=== PATIENT | female | born 1955 | race Two or more races ===

== ENCOUNTER 2020-06-10 10:56 | Outpatient (AMBR) | payer MEDICARE, MEDICAID, SELFPAY ==
--- NOTE | 2020-06-10 12:49 | PTNOTE_ITS ---
PT OP Initial Eval Patient Information Visit Reasons: knee pain Medical Diagnosis: Right Knee Pain; Right Foot Pain Treatment Dx #1: Right Knee Pain Treatment Dx #2: Right Foot Pain Start of Care: 06/10/20 Date of Onset: Apr 2020 Initial Assessment Subjective Pt is a 65 y/o female c/o right knee and foot pain after she fell on it in Apr 2020. Pt has limitation with prolonged standing, chores, walking, cooking, cleaning, uneven surface, squatting, kneeling, and performing recreational activities. Pt recent xray showed right mild to moderate knee OA. No MRI done thus far. Objective Right Knee AROM: 0 deg to 125 deg with pain Right Knee MMTs Quads: 4-/5 Hs: 4-/5 Right Hip MMTs Glute Med: 3/5 Glute Max: 3/5 Right Ankle AROM: all motions are WFL Right Ankle MMTs: grossly 3+/5 SLS: unable Assessment Pt demonstrate right knee and ankle pain leading to decline function. Pt will attempt physical therapy if pain persist Pt will be refer back to provider. Short Term and Care Home Goals 1) Increase right knee AROM WNL in 6 wks to be able to perform squatting activities 2) Increase right knee MMTs grossly to 4/5 in 6 wks to be able to perform stairs and steps 3) Increase right ankle MMTs grossly to 4-/5 in 6 wks to be able to perform ambulation more than 1 hr 4) Decrease knee pain to 2/10 in 6 wks to be able to perform kneeling activities 5) Indep with HEP Treatment Plan 1) Manual Therapy 2) Therapeutic Activities 3) Therapeutic Exercises 4) Modalities (ice, heat) 5) Balance Training Frequency and Duration 2 x wk for 6 wks Certification Dates: 06/10/20 to 09/10/20 Office Procedures PT Procedures PT Date of Service: 06/10/20 OP PT Eval Mod Complex 30 minutes: Yes
== END 2020-06-14 23:59 | disposition home or self-care (01) ==
PROVIDERS: PCP Physician Assistant; Referring Provider Physician Assistant; Visit Provider Podiatrist
DX: M25.561 Pain in right knee (principal); M79.671 Pain in right foot; R26.2 Difficulty in walking, not elsewhere classified; M25.461 Effusion, right knee
CPT/HCPCS: 97162

== ENCOUNTER 2020-07-02 13:24 | Outpatient (AMBR) | payer MEDICARE, MEDICAID, SELFPAY ==
--- NOTE | 2020-06-16 14:48 | PT.ODAYNRPT ---
PT Outpatient Daily Note Date of Service: 06/16/2020 OP Daily Note Visit Reasons: KNEE PAIN Outpatient Physical Therapy Treatment Date: 06/16/20 Subjective: pt came in with pain and discomfort upon visit. Objective: see flow sheet. Assessment: pt c/o knee and R foot pain. the bigger step she took the more pain she had. she kept pointing to the R quad muscles of pain. she also mentioned HS muscle pain for BLE. she removed her slip on shoes her exercises. she was limited with FWD lunges due to increase in pain. pt ambulates with antalgic gait pattern. pt refused ice or heat post ther ex due to her car ride waiting for her outside. Plan: continue POC per PT. Length of Time (minutes) of Treatment: 30 Minutes GROUP CONTROLLER Service Modifier Method I: Divide the number of min of care provided by the GROUP CONTROLLER/MANUELA by the total min of care provided then multiply by 100. If greater than 11 percent modifier is required. Method II: Divide the total time of care provided to patient by 10 (round to the nearest whole number) and add 1 min. to set the minimum time requirement. If treatment total was 60 min., then 10% of 6 min Did GROUP CONTROLLER provide more than 10% of the care?: Yes PT CQ modifier applied: CQ Modifier applied Office Procedures PT Procedures PT Date of Service: 06/16/20 Therapeutic Exercise 30 minutes: Yes
--- NOTE | 2020-06-19 13:52 | PT.ODAYNRPT ---
PT Outpatient Daily Note Date of Service: 06/19/2020 OP Daily Note Visit Reasons: KNEE PAIN Outpatient Physical Therapy Treatment Date: 06/19/20 Subjective: pt came in with c/o posterior R knee pain. she also mentioned having a tear on her plantar R foot. Objective: see flow sheet. Assessment: pt is sensitive with certain exercises. she did try the stepper stretch in which she c/o pain of the R ankle so she stepped off. at times pt removes her shoes for exercises. advised her to leave them on for her walking exercises which are in the PB but to avoid any slips/falls she is to keep them on. added cones in her exercises as she is to step over them with alternating LEs. she c/o being fatigued. she sat and rested. she refuses ice pack. Plan: continue POC per PT. Length of Time (minutes) of Treatment: 30 Minutes ADMITTING OFFICE ESCORT Service Modifier Method I: Divide the number of min of care provided by the ADMITTING OFFICE ESCORT/MANUELA by the total min of care provided then multiply by 100. If greater than 11 percent modifier is required. Method II: Divide the total time of care provided to patient by 10 (round to the nearest whole number) and add 1 min. to set the minimum time requirement. If treatment total was 60 min., then 10% of 6 min Did ADMITTING OFFICE ESCORT provide more than 10% of the care?: Yes PT CQ modifier applied: CQ Modifier applied Office Procedures PT Procedures PT Date of Service: 06/16/20 Therapeutic Exercise 30 minutes: Yes PT Procedures PT Date of Service: 06/19/20 Therapeutic Exercise 30 minutes: Yes
--- NOTE | 2020-06-27 14:11 | PTNOTE_ITS ---
PT Outpatient Daily Note Date of Service: 06/27/2020 OP Daily Note Visit Reasons: KNEE PAIN Outpatient Physical Therapy Treatment Date: 06/27/20 Subjective: pt states her mile back and bottom of her feet hurt upon visit. Objective: see flow sheet. Assessment: during her side steps she does have RTB but she is not able to stretch and push against the resistance due to pain. she is taking small steps. she refused to take bigger steps. her mobility during FWD lunges is limited due to c/o back pain. pt pt c/o pain all throughout treatment. advised pt she can stop and rest as needed but she didn't and completed all reps. pt refused ice or heat on her R knee post ther ex. Plan: continue POC per PT. Length of Time (minutes) of Treatment: 30 Minutes NUMERICAL CONTROL MACHINE MACHINIST Service Modifier Method I: Divide the number of min of care provided by the NUMERICAL CONTROL MACHINE MACHINIST/MANUELA by the total min of care provided then multiply by 100. If greater than 11 percent modifier is required. Method II: Divide the total time of care provided to patient by 10 (round to the nearest whole number) and add 1 min. to set the minimum time requirement. If treatment total was 60 min., then 10% of 6 min Did NUMERICAL CONTROL MACHINE MACHINIST provide more than 10% of the care?: Yes PT CQ modifier applied: CQ Modifier applied Office Procedures PT Procedures PT Date of Service: 06/16/20 Therapeutic Exercise 30 minutes: Yes PT Procedures PT Date of Service: 06/27/20 Therapeutic Exercise 30 minutes: Yes PT Procedures PT Date of Service: 06/19/20 Therapeutic Exercise 30 minutes: Yes
--- NOTE | 2020-07-02 14:27 | PT.ODAYNRPT ---
PT Outpatient Daily Note Date of Service: 07/02/20 OP Daily Note Visit Reasons: KNEE PAIN Outpatient Physical Therapy Treatment Date: 07/02/20 Subjective: Pt's right knee and foot is a little better. Objective: Please see flow chart for list of ther ex performed Assessment: tolerate exercises with minimal pain Plan: Continue with PT Length of Time (minutes) of Treatment: 30 Minutes Office Procedures PT Procedures PT Date of Service: 06/16/20 Therapeutic Exercise 30 minutes: Yes PT Procedures PT Date of Service: 06/27/20 Therapeutic Exercise 30 minutes: Yes PT Procedures PT Date of Service: 07/02/20 Therapeutic Exercise 30 minutes: Yes PT Procedures PT Date of Service: 06/19/20 Therapeutic Exercise 30 minutes: Yes
== END 2020-07-14 23:59 | disposition home or self-care (01) ==
PROVIDERS: PCP Physician Assistant; Referring Provider Physician Assistant; Visit Provider Physician Assistant
DX: M25.561 Pain in right knee (principal); M79.671 Pain in right foot; R26.2 Difficulty in walking, not elsewhere classified
CPT/HCPCS: 97110

== ENCOUNTER 2021-08-12 13:55 | Outpatient (AMBR) | payer MEDICARE, MEDICAID, SELFPAY ==
--- NOTE | 2021-08-12 14:09 | PTNOTE_ITS ---
PT OP Initial Eval Patient Information Visit Reasons: bilateral trigger thumb Medical Diagnosis: M65.311 Treatment Dx #1: B trigger thumbs Start of Care: 08/12/21 Date of Onset: March 2021 Initial Assessment Subjective Pt is 66 yr old female who lifted a heavy box and she lost control of it and it bent back her thumbs far enough to feel a pop. She reports intense pain around the base of the thumb and that they pop when she moves them. She was off work for 3 months after the injury since she couldn't move her hands. Increased pain with typing, lifting, gripping and pulling objects. B wrists also hurt and feel like electric shocks in there. PLOF: pt had full use of thumbs and hands with gripping and lifting objects not limited by pain. PMH: HTN, allergies Imaging: with [facility] Pt goal: to get rid of the pain in order to move the thumbs better with work duties. 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 Pt requires skilled therapy in order to desensitize the thumb area and improve classified advertising clerk strength and has fair rehab potential. 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 Ind with HEP 2. Improved classified advertising clerk strength to at least 15 lbs B in order to lift and classified advertising clerk objects better 3. Decreased TTP from high to moderate of thumb region Treatment Plan 90 day plan of care in order to complete visits 1. Manual therapy 2. Therex 3. Modalities as indicated, moist heat pack, ice, electrical stimulation Frequency and Duration 2x a week for 6 weeks Certification Dates: 08/12/21 to 11/08/21 Office Procedures PT Treatments PT Date of Service: 08/12/21 OP PT Eval Mod Complex 30 minutes: Yes
== END 2021-08-14 23:59 | disposition home or self-care (01) ==
PROVIDERS: PCP Orthopaedic Surgery; Referring Provider Orthopaedic Surgery; Visit Provider Orthopaedic Surgery
DX: M65.311 Trigger thumb, right thumb (principal); M79.642 Pain in left hand; M79.641 Pain in right hand; M25.532 Pain in left wrist; M25.531 Pain in right wrist; I10 Essential (primary) hypertension
CPT/HCPCS: 97162

== ENCOUNTER → 2024-07-24 | Outpatient (CLI) | payer OTHER, MEDICAID, SELFPAY ==
[2024-07-24 13:21] LABS: Basophils # (Auto) 0.1 Thou/mm3 (0.0-0.2); Basophils % (Auto) 1 % (0-2.5); Eosinophils # (Auto) 0.2 Thou/mm3 (0.0-0.5); Eosinophils % (Auto) 2 % (0-10); Hematocrit 41.9 % (36.0-46.0); Hemoglobin 14.1 g/dL (12.0-16.0); Immature Granulocytes % (Auto) 0 % (0-0); Immature Granulocytes Auto 0.03 Thou/mm3 (0.00-0.00); Lymphocytes # (Auto) 1.6 Thou/mm3 (1.0-4.8); Lymphocytes % (Auto) 20 % (10-50); Mean Corpuscular HGB Conc 33.7 g/dl (31.0-37.0); Mean Corpuscular Hemoglobin 30.5 pg (25.0-35.0); Mean Corpuscular Volume 91 fL (80-100); Monocytes # (Auto) 0.6 Thou/mm3 (0.0-0.8); Monocytes % (Auto) 7 % (0-12); Neutrophils # (Auto) 5.6 Thou/mm3 (1.8-7.7); Neutrophils % (Auto) 70 % (37-80); Nucleated Red Blood Cell % 0 /100 WBC (0); Platelet Count 242 Thou/mm3 (140-440); RDW Standard Deviation 39.3 fL (36.4-46.3); Red Blood Count 4.62 Miln/mm3 (4.00-5.20); White Blood Count 7.9 Thou/mm3 (3.6-11.0)
[2024-07-24 13:52] LABS: Alanine Aminotransferase 29 U/L (10-49); Albumin, Serum 4.2 gm/dL (3.4-4.8); Albumin/Globulin Ratio 2.1 (1.2-2.2); Alkaline Phosphatase 64 U/L (46-116); Anion Gap 5 (7-16); Aspartate Amino Transferase 23 U/L (0-34); BUN/Creatinine Ratio 21 Ratio (12-20); Bilirubin,Total 0.5 mg/dL (0.3-1.2); Blood Urea Nitrogen 15 mg/dL (9-23); Calcium 9.5 mg/dL (8.3-10.6); Calcium (Corrected) 9.5 mg/dL (8.5-10.1); Carbon Dioxide 32.6 mMol/L (20.0-31.0); Chloride 104 mMol/L (98-107); Creatinine (Component) 0.7 mg/dL (0.6-1.3); Glucose 106 mg/dL (74-106); Osmolality,Calculated 283 (275-295); Potassium 3.9 mMol/L (3.4-5.1); Sodium 142 mMol/L (136-145); Total Protein 6.2 gm/dL (5.7-8.2); eGFR > 60 See Note
== END | disposition home or self-care (01) ==
LOC: COPL 12:53
PROVIDERS: PCP Family Medicine; Referring Provider Internal Medicine Hematology & Oncology; Visit Provider Internal Medicine Hematology & Oncology
DX: C50.412 Malignant neoplasm of upper-outer quadrant of left female breast (principal)
CPT/HCPCS: 36415; 80053; 85025

== ENCOUNTER → 2024-08-21 | Outpatient (BNVA) | payer OTHER, MEDICAID, SELFPAY | END | disposition home or self-care (01) | PROVIDERS: PCP Nurse Anesthetist, Certified Registered; Referring Provider Nurse Anesthetist, Certified Registered; Visit Provider Urology | DX: R10.2 Pelvic and perineal pain (principal); R31.9 Hematuria, unspecified; N28.1 Cyst of kidney, acquired; Z87.440 Personal history of urinary (tract) infections; C50.919 Malignant neoplasm of unspecified site of unspecified female breast; Z92.3 Personal history of irradiation; I10 Essential (primary) hypertension; E78.00 Pure hypercholesterolemia, unspecified; K21.9 Gastro-esophageal reflux disease without esophagitis | CPT/HCPCS: 81003; 99212; G0463 ==

== ENCOUNTER → 2024-08-27 | Outpatient (CLI) | payer OTHER, MEDICAID, SELFPAY ==
--- NOTE | 2024-08-27 15:30 | XR_ITS ---
Examination: CT chest, without intravenous contrast. Sagittal and coronal 2-D reconstructions. 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 Bone and lung density settings are obtained. Sagittal and coronal 2-D reconstructions have been obtained. Low dose protocols were performed. One or more of the following dose reduction techniques were used; automated exposure control, adjustment of the mA and/or KV according to patient size, use of iterative reconstruction technique. Findings: No thoracic aortic aneurysm dilatation or dissection Pulmonary artery segments are not enlarged Mild to moderate calcification left anterior descending coronary artery Mild enlargement cardiac contour No paratracheal tracheobronchial or bronchopulmonary adenopathy Stable 11 mm nodule lateral left breast No axillary lymphadenopathy New 3 mm pulmonary nodule in the right perihilar region image 159 Remaining pulmonary nodules are stable No pneumonia or pulmonary edema Diffuse fatty infiltration throughout the visualized liver Spleen is not enlarged No pancreatic mass Kidneys partially visualized no hydronephrosis Moderate osteopenia IMPRESSION: New 3 mm pulmonary nodule in the right lung, with this study as baseline, suggest continued 6 month follow-up CT chest without contrast
== END | disposition home or self-care (01) ==
PROVIDERS: PCP Internal Medicine; Referring Provider Internal Medicine Hematology & Oncology; Visit Provider Internal Medicine Hematology & Oncology
DX: R91.1 Solitary pulmonary nodule (principal); C50.412 Malignant neoplasm of upper-outer quadrant of left female breast
CPT/HCPCS: 71250

== ENCOUNTER → 2024-08-30 | Outpatient (CLI) | payer OTHER, MEDICAID, SELFPAY ==
--- NOTE | 2024-08-30 14:55 | XR_ITS ---
EXAMINATION: Cervical spine, 5 views Technique: Cervical spine AP, AP odontoid, lateral, bilateral obliques, 5 views Exam date and time: August 30, 2024 1507 hours INDICATIONS: Injury to the shoulder today with right-sided neck pain FINDINGS: Straightening normal cervical lordosis no cervical fracture Advanced degenerative disc disease C6-C7 with moderate bilateral neural foraminal stenosis C5-C6, C6-C7 Intact odontoid No cervical fracture IMPRESSION: Advanced degenerative disc disease C6-C7
--- NOTE | 2024-08-30 14:55 | XR_ITS ---
Examination: Clavicle 2 views, right Technique: Clavicle AP, angled up AP, 2 views Exam date and time: August 30, 2024 1807 hours INDICATIONS: Injury to the shoulder today, shoulder pain. FINDINGS: No acute clavicle fracture No significant separation IMPRESSION: No acute clavicle fracture
--- NOTE | 2024-08-30 14:55 | XR_ITS ---
Examination: Shoulder,right, 3 views Technique: Shoulder AP internal rotation, AP external rotation, Y view shoulder, 3 views Exam date and time :August 30, 2024 1507 hours INDICATIONS: Shoulder, shoulder pain. FINDINGS: Moderate osteopenia No shoulder fracture or dislocation No AC joint separation IMPRESSION: No shoulder fracture or dislocation
== END | disposition home or self-care (01) ==
LOC: COPL 14:33 → CDIM 09-24 11:50
PROVIDERS: PCP Internal Medicine; Referring Provider Obstetrics & Gynecology; Visit Provider Obstetrics & Gynecology
DX: M50.323 Other cervical disc degeneration at C6-C7 level (principal); S49.91XA Unspecified injury of right shoulder and upper arm, initial encounter; X58.XXXA Exposure to other specified factors, initial encounter
CPT/HCPCS: 72050; 73000; 73030

== ENCOUNTER → 2024-09-14 | Outpatient (CLI) | payer OTHER, MEDICAID, SELFPAY ==
--- NOTE | 2024-09-14 15:00 | XR_ITS ---
Examination: Breast ultrasound, unilateral, right complete Date and time of exam: September 14, 2024 1527 hours INDICATIONS: Right breast sonogram December 15, 2023 9:00 architectural distortion 16 x 10 mm right breast tenderness post lumpectomy, personal history left breast cancer Technique: Real-time flores scale ultrasonographic imaging performed right breast including all 4 quadrants as well as nipple retroareolar and axillary region. Findings: No cystic or solid mass at this time IMPRESSION: BI-RADS Category 1: Negative study
--- NOTE | 2024-09-14 15:30 | XR_ITS ---
Examination: Retroperitoneal ultrasound, complete Technique: Multiple high resolution grayscale images of the retroperitoneum obtained, including kidneys and bladder. Exam date and time:September 14, 2024 1415 hours INDICATIONS: 18 mm cyst left kidney on CT examination November 24, 2023 FINDINGS: Right kidney 10.9 x 3.8 x 4.1 cm cortex 1.6 cm Left kidney 10.1 x 4.6 x 4.4 cm renal cortex 2.0 cm Lower pole left renal cyst 24 mm Moderate bilateral renal parenchymal scar formation No hydronephrosis No bladder mass Bladder prevoid volume 70 cc Incidental note large uterine area of probable fibroid degeneration 6.8 cm IMPRESSION: Lower pole left renal cyst 24 x 23 x 23 mm
== END | disposition home or self-care (01) ==
PROVIDERS: PCP Urology; Referring Provider Urology; Visit Provider Urology
DX: N28.1 Cyst of kidney, acquired (principal); R92.8 Other abnormal and inconclusive findings on diagnostic imaging of breast; Z85.3 Personal history of malignant neoplasm of breast
CPT/HCPCS: 76641; 76770

== ENCOUNTER → 2024-12-07 | Outpatient (CLI) | payer OTHER, MEDICAID, SELFPAY ==
[2024-12-08 08:54] LABS: BVAG Candida Negative (Negative); Bacterial Vaginosis Markers Negative (Negative); Candida glabrata Negative (Negative); Candida krusei PCR Negative (Negative); Trichomonas Negative (Negative)
== END | disposition home or self-care (01) ==
LOC: SLDO 15:34
PROVIDERS: Referring Provider Specialist; Visit Provider Specialist
DX: A59.01 Trichomonal vulvovaginitis (principal); B37.89 Other sites of candidiasis; N76.0 Acute vaginitis
CPT/HCPCS: 81514

== ENCOUNTER → 2024-12-11 | Outpatient (CLI) | payer OTHER, MEDICAID, SELFPAY ==
[2024-12-11 14:27] LABS: Basophils # (Auto) 0.1 Thou/mm3 (0.0-0.2); Basophils % (Auto) 1 % (0-2.5); Eosinophils # (Auto) 0.2 Thou/mm3 (0.0-0.5); Eosinophils % (Auto) 3 % (0-10); Hematocrit 38.8 % (36.0-46.0); Hemoglobin 13.4 g/dL (12.0-16.0); Immature Granulocytes % (Auto) 0 % (0-0); Immature Granulocytes Auto 0.02 Thou/mm3 (0.00-0.00); Lymphocytes # (Auto) 1.9 Thou/mm3 (1.0-4.8); Lymphocytes % (Auto) 24 % (10-50); Mean Corpuscular HGB Conc 34.5 g/dl (31.0-37.0); Mean Corpuscular Hemoglobin 31.1 pg (25.0-35.0); Mean Corpuscular Volume 90 fL (80-100); Monocytes # (Auto) 0.6 Thou/mm3 (0.0-0.8); Monocytes % (Auto) 7 % (0-12); Neutrophils % (Auto) 65 % (37-80); Nucleated Red Blood Cell % 0 /100 WBC (0); Platelet Count 243 Thou/mm3 (140-440); RDW Standard Deviation 40.2 fL (36.4-46.3); Red Blood Count 4.31 Miln/mm3 (4.00-5.20); White Blood Count 7.7 Thou/mm3 (3.6-11.0)
[2024-12-11 14:44] LABS: Alanine Aminotransferase 14 U/L (10-49); Albumin, Serum 3.8 gm/dL (3.4-4.8); Albumin/Globulin Ratio 1.7 (1.2-2.2); Alkaline Phosphatase 86 U/L (46-116); Anion Gap 5 (7-16); Aspartate Amino Transferase 19 U/L (0-34); BUN/Creatinine Ratio 16 Ratio (12-20); Bilirubin,Total 0.4 mg/dL (0.3-1.2); Blood Urea Nitrogen 13 mg/dL (9-23); Calcium 8.9 mg/dL (8.3-10.6); Calcium (Corrected) 9.1 mg/dL (8.5-10.1); Carbon Dioxide 31.7 mMol/L (20.0-31.0); Chloride 106 mMol/L (98-107); Creatinine (Component) 0.8 mg/dL (0.6-1.3); Globulin 2.2 gm/dL (2.3-3.5); Glucose 118 mg/dL (74-106); Osmolality,Calculated 286 (275-295); Potassium 3.9 mMol/L (3.4-5.1); Sodium 143 mMol/L (136-145); eGFR > 60 See Note
== END | disposition home or self-care (01) ==
LOC: SCTO 13:41
PROVIDERS: PCP Family Medicine; Referring Provider Internal Medicine Hematology & Oncology; Visit Provider Internal Medicine Hematology & Oncology
DX: C50.412 Malignant neoplasm of upper-outer quadrant of left female breast (principal)
CPT/HCPCS: 36415; 80053; 85025

== ENCOUNTER 2024-12-12 14:02 | Outpatient (RCR) | payer OTHER, MEDICAID, SELFPAY ==
--- NOTE | 2024-12-19 12:33 | CTCFLWUP_ITS ---
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 She recently underwent cardiac testing (heart ultrasound and stress test) with pending results. Currently on tamoxifen 20mg at bedtime after d iscontinuing letrozole due to side effects. Other medications include metoprolol, aspirin, and Prolia (next dose December 30). Examination revealed left breast tenderness and thickening. Plan includes continuing current medications, ordering bilateral mammogram, breast ultrasound, Netera DNA test, and ralox ifene. Chief Complaint Chest tightness, breast tenderness and thickening History of Present Illness Jordi Villafana, a patient with a history of breast cancer, presents for follow-up with multiple concerns. Her chief complaints include chest tightness and breast tenderness. The patient reports experiencing chest tightness, though the onset and duration are not specified. She had an ultrasound of the heart yesterday and a stress test last Tuesday. She is scheduled to see a career development associate on Tuesday for the results of these tests. Keyanna also mentions breast tenderness and thickening. She has been instructed to massage her breast to address these symptoms. 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 Surgery was completed by 2019. Currently, Keyanna is on hormone-blocking therapy with tamoxifen 20 mg, which she reports makes her tired. She was previously on letrozole but discontinued it due to side effects, including feeling sick and increased white blood cell count. She now takes tamoxifen at bedtime to help with sleep. Other medications include metoprolol, aspirin, and Prolia every six months. The patient's blood pressure and blood sugar have been high recently, though today's blood sugar reading was 83. She takes calcium with magnesium supplements and is considering getting a prescription for them. Vital Signs - Blood Pressure: Not reported - Blood Sugar: 83 (units not specified) Physical Examination Breast: Left breast tender and thickened on palpation. Laboratory, Imaging, and Diagnostic Test Results - Date: 12/11/2024 - Blood glucose: 83 mg/dL - Ultrasound of the heart (12/11/2024): Results pending - Stress test (12/05/2024): Results pending - Ultrasound of the right breast (August 2024): Negative - CT scan (date not specified): Small 3mm nodule, noted as insignificant - Mammogram (12/15/2023): Results not mentioned - Previous results: - White blood cell count: Elevated (date not specified, while on letrozole) Medical History - Hypertension (high blood pressure) - Diabetes mellitus (high blood sugar) - ER-positive, IA-negative ductal carcinoma in situ (stage 0) breast cancer diagnosed in 2022 - Stage 2 breast cancer in the left breast diagnosed in 2018 Surgical History - Left breast surgery for stage 2 breast cancer, completed by 2019 Medications and Supplements - Tamoxifen 20 mg by mouth at bedtime - For hormone-blocking therapy - Causes tiredness - Helps with sleep - Metoprolol - Aspirin - Prolia - Administered every six months - Letrozole - Discontinued - Caused sickness and increased white blood cells Social History - Insurance: Patient has [employer] Medicare Immunizations - Prolia: Patient receives doses every six months, with next dose scheduled for December 30 Review of Systems General: Positive for fatigue. Cardiovascular: Positive for chest tightness. Musculoskeletal: Positive for breast tenderness. ONCOLOGY HISTORY: DIAGNOSIS: ER positive, IA negative ductal carcinoma in situ of right breast (01/11/2023). S/p right breast lumpectomy (02/18/2023) S/p adjuvant radiation therapy (05/18/2023 - 06/14/2023) [facility] hereditary cancer test negative (03/10/2023) Stage IIa (pT1c, psN1a), ER positive, IA positive, HER-2/kami negative, intermediate grade invasive ductal carcinoma of the left breast. Status post partial mastectomy and sentinel lymph node biopsy (07/27/2019). Status post radiation therapy completed on 12/07/2019. Low Oncotype DX recurrence score (16) Was on letrozole (12/10/2019?02/18/2023), Prolia and Citracal. Ductal Carcinoma in situ of right breast s/p lumpectomy (02/18/2023) letrozole discontinued. Ms. Walter is started on tamoxifen. REASON FOR TODAY?S VISIT: This is office follow-up visit. Ms. Walter is here at [facility]. She is clinically doing well. Denies any new complaints. Denies any cough, chest pain, abdominal pain or leg cramps. Since last visit she had CT scan of the chest done without contrast which showed small multiple pulmonary nodules as documented below. Repeat CT scan is recommended to be done in 6 months. Ms. 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 07/28/2018: Bilateral screening mammogram showed a suspicious focus of architectural distortion in the upper outer left breast at 1:30 position mid to anterior depth. 08/18/2018: Left breast diagnostic mammogram did not show any definite architectural distortion in the left breast. 04/27/2019: Left breast diagnostic mammogram showed architectural distortion at 1:30 position in the left breast mid to anterior depth. 06/07/2019: Stereotactic guided vacuum-assisted left breast biopsy with clip placement was performed. 07/27/2019: Patient had left breast partial mastectomy and sentinel lymph node biopsy. 09/21/2019: Oncotype DX 10/29/2019?12/07/2019: Patient received 5600 cGy radiation therapy to the left breast. 12/10/2019: Patient is started on Femara and Citracal 01/03/2020: DEXA scan? 03/06/2020: Patient received first dose of Prolia 60 mg subcu. 10/20/2020: Patient had bilateral screening mammogram which showed BI-RADS Category 2: Benign findings. 10/02/2020: AST 26, ALT 34. 01/28/2021: AST 30, ALT 52. 04/01/2021 AST 53, ALT 81 09/08/2021: AST 53, ALT 73. 11/02/2021: AST 65, ALT 85. 12/02/2022: Right breast diagnostic mammogram? 01/11/2023: tereotactic core biopsy of right breast calcifications? 02/18/2023: 03/24/2023: CT-guided biopsy of the left carotid triangle lymph node? 04/07/2023: Letrozole discontinued. Patient is started on tamoxifen 20 mg p.o. Daily. 05/18/2023 - 06/14/2023: Ms. Walter received adjuvant radiation therapy to the right breast. 09/16/2023: Left breast ultrasound? 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 Aspirin Child - 81 mg Daily 2. Navjot-600 With Vitamin D - 600 mg Daily 3. cetirizine - 10 mg Capsule Daily 4. Claritin - 10 mg Daily 5. ferrous sulfate - 325 mg Daily 6. Folite - 2-211-29-100 ae-qj-wsp-mg 1 tab Daily 7. lovastatin - 40 mg 1 tab Daily 8. magnesium - 200 mg 1 tab Daily 9. metoprolol succinate - 25 mg 1 tab Daily 10. tamoxifen - 20 mg 1 tab Daily 11. TylenoL - 500 mg 1 tab As needed Medications Last Reconciled by Merlene Ruiz MA on 12/12/2024 ALLERGIES: codeine sulfate; Iodine and Iodide Containing Products; IV CONTRAST REVIEW OF SYSTEMS: A complete 14-point review of systems was performed and is negative except as noted in interval history. PHYSICAL EXAMINATION: VITAL SIGNS: Temperature?98, B/P?110/75, Oxygen?Saturation?95% PAIN: 0 - No pain ECOG Performance Status: 0 - Asymptomatic and fully active GENERAL APPEARANCE: Appears well, in no apparent distress, appropriately interactive. HEENT: Normocephalic, no temporal wasting, normal conjunctiva, no scleral icterus, normal hearing, lips without lesions, neck normal range of motion. CARDIOVASCULAR: Not assessed. PULMONARY: Normal respiratory effort, no respiratory distress or use of accessory muscles, speaking in full sentences, no tachypnea. EXTREMITIES: No pedal edema or cyanosis. SKIN: Normal skin appearance. NEUROLOGIC: Alert and oriented x4. PSHYCHIATRIC: Appropriate affect, mood normal, behavior normal, intact thought and speech. LABORATORY DATA: I have personally reviewed and interpreted each of the patient?s relevant lab tests, abnormal findings are below: Date 07/24/24 12/11/24 ??WHITE?BLOOD?COUNT?(Thou/mm3) 7.9 7.7 ??RED?BLOOD?COUNT?(Miln/mm3) 4.62 4.31 ??HEMOGLOBIN?(gm/dl) 14.1 13.4 ??HEMATOCRIT?(%) 41.9 38.8 ??PLATELET?COUNT?(Thou/mm3) 242 243 ??NEUTROPHILS?%,?AUTO?(%) 70 65 ??LYMPH?%,?AUTO?(%) 20 24 ??NEUTROPHILS,?AUTO?(Thou/mm3) 5.6 5.0 ??GLUCOSE,RANDOM?(mg/dL) 106 118?H ??BLOOD?UREA?NITROGEN?(mg/dL) 15 13 ??CREATININE?(mg/dL) 0.70 0.80 ??SODIUM?(mmol/L) 142 143 ??POTASSIUM?(mmol/L) 3.9 3.9 ??CHLORIDE?(mmol/L) 104 106 ??CrCl?(CandG)?(ml/min) 80.97 70.85 ??AST/SGOT?(Unit/L) 23 19 ??ALT/SGPT?(Unit/L) 29 14 ??ALKALINE?PHOSPHATASE?(Unit/L) 64 86 ??BILIRUBIN,?TOTAL?(mg/dL) 0.5 0.4 ??PROTEIN?TOTAL?(gm/dl) 6.2 6.0 ??ALBUMIN,?SERUM?(gm/dl) 4.2 3.8 ??GLOBULIN?(gm/dl) 2.0?L 2.2?L ??ALBUMIN/GLOBULIN?RATIO 2.1 1.7 ??CALCIUM,?SERUM?(mg/dL) 9.5 8.9 ??CALCIUM?SERUM?(CORRECTED)?(mg/dL) 9.5 9.1 ASSESSMENT/PLAN: 1. Stage IIa (pT1c, psN1a), ER positive, IA positive, HER-2/kami negative, intermediate grade invasive ductal carcinoma of the left breast. Low Oncotype DX score of 16Recently identified multiple small pulmonary nodules as documented above. Ms. Walter denies any cough, chest pain, shortness of breath. Denies any fevers or night sweats. S/p radiation therapy to the right breast completed on 06/14/2023. Currently she is on tamoxifen and tolerating it very well. Tamoxifen was started on 04/07/2023. Patient developed ductal carcinoma in situ ER positive, IA positive of the right breast while on letrozole. Letrozole discontinued. S/p right breasT lumpectomy. She is also on Prolia and Citracal for osteopenia Status post partial mastectomy and sentinel lymph node biopsy (07/27/2019). Status post radiation therapy completed on 12/07/2019. I requested a repeat CT scan of the chest without contrast to be done on September 05, 2024. Continue tamoxifen 20 mg p.o. daily. Continue Prolia 60 mg subcu every 6 months. Continue calcium/vitamin D tablets. Will see her back in clinic in last week of August 2024 for follow-up. Ayala Yony Coleman, female patient with history of right breast cancer, presented for follow-up after non-compliance with chemotherapy treatment. Right breast cancer Assessment: Patient has a history of right breast cancer, initially diagnosed in August. A CT scan in October showed good results. Physical examination reveals a right breast mass measuring 4 x 3 cm, which is freely mobile. The breast size is estimated to be cup size A or B. The patient has been non-compliant with chemotherapy, having only completed two treatments. The cancer has not spread to other body parts, but the tumor remains present in the right breast. The patient's non-compliance with treatment puts her at high risk for cancer progression and potential complications, including the tumor breaking through the skin, causing bleeding and malodor. Plan: - Refer to Dr. Amezcua, breast surgeon, for evaluation and possible mastectomy - Recommend resumption of chemotherapy regimen - Informed patient that one drug has been removed from the original regimen - Discussed risks of non-compliance, including cancer progression and potential complications - Order MARYCRUZ blood test for early cancer detection - To be performed every 3 months - Can be done at patient's home - Schedule follow-up appointment to discuss treatment plan and surgical options - Advised patient to come in for symptom management (e.g., nausea) if needed during treatment ORDERS: Order # Description [id number] Basic Metabolic Panel [id number] Basic Metabolic Panel [id number] Basic Metabolic Panel BILLING AND COMPLIANCE: I reviewed external records from providers outside my specialty as summarized above. I spent a total of 50 minutes on this patient?s care on the day of their visit excluding time spent related to any billed procedures. This time includes time spent with the patient as well as time spent documenting in the medical record, reviewing patients records and tests, obtaining history, placing orders, communicating with other healthcare professionals, counseling the patient, family or caregiver, and/or care coordination for the diagnoses above. Electronically Signed by: Prabhjot Perez MD T: 12:31 PM CC: ORQUIDEA Vanegas PCP: Sherman Barnes Referring: Sherman Barnes This document was completed utilizing speech recognition software. Grammatical errors, random word insertions, pronoun errors, and incomplete sentences are an occasional consequence of this system due to software limitations, ambient noise, and hardware issues. Any formal questions or concerns about the content, text or information contained within the body of this dictation should be directly addressed to the provider for clarification.
== END 2024-12-12 23:59 | disposition home or self-care (01) ==
LOC: SCTC 14:02
PROVIDERS: PCP Family Medicine; Referring Provider Family Medicine; Visit Provider Internal Medicine Hematology & Oncology
DX: C50.412 Malignant neoplasm of upper-outer quadrant of left female breast (principal); Z17.0 Estrogen receptor positive status [ER+]; Z17.21 Progesterone receptor positive status; Z17.32 Human epidermal growth factor receptor 2 negative status; Z79.810 Long term (current) use of selective estrogen receptor modulators (SERMs); N64.59 Other signs and symptoms in breast; R07.89 Other chest pain; Z90.13 Acquired absence of bilateral breasts and nipples; Z92.3 Personal history of irradiation; R91.8 Other nonspecific abnormal finding of lung field; M85.88 Other specified disorders of bone density and structure, other site; Z91.199 Patient's noncompliance with other medical treatment and regimen due to unspecified reason
CPT/HCPCS: 99212; G0463

== ENCOUNTER 2024-12-31 14:09 | Outpatient (RCR) | payer OTHER, MEDICAID, SELFPAY | END 2025-01-12 23:59 | disposition home or self-care (01) | LOC: SCTC 14:09 | PROVIDERS: PCP Internal Medicine; Referring Provider Family Medicine; Visit Provider Radiology Therapeutic Radiology | DX: C50.412 Malignant neoplasm of upper-outer quadrant of left female breast (principal); Z17.0 Estrogen receptor positive status [ER+]; Z17.21 Progesterone receptor positive status; Z17.32 Human epidermal growth factor receptor 2 negative status; Z79.810 Long term (current) use of selective estrogen receptor modulators (SERMs); R91.8 Other nonspecific abnormal finding of lung field; Z92.3 Personal history of irradiation; Z90.13 Acquired absence of bilateral breasts and nipples | CPT/HCPCS: 96368; 96372; J0897 ==

== ENCOUNTER → 2025-01-01 | Outpatient (CLI) | payer OTHER, MEDICAID, SELFPAY ==
[2025-01-01 14:48] LABS: Basophils # (Auto) 0.1 Thou/mm3 (0.0-0.2); Basophils % (Auto) 1 % (0-2.5); Eosinophils # (Auto) 0.1 Thou/mm3 (0.0-0.5); Eosinophils % (Auto) 2 % (0-10); Hematocrit 38.2 % (36.0-46.0); Hemoglobin 13.6 g/dL (12.0-16.0); Immature Granulocytes % (Auto) 0 % (0-0); Immature Granulocytes Auto 0.03 Thou/mm3 (0.00-0.00); Lymphocytes # (Auto) 1.9 Thou/mm3 (1.0-4.8); Lymphocytes % (Auto) 22 % (10-50); Mean Corpuscular HGB Conc 35.6 g/dl (31.0-37.0); Mean Corpuscular Hemoglobin 31.1 pg (25.0-35.0); Mean Corpuscular Volume 87 fL (80-100); Monocytes # (Auto) 0.6 Thou/mm3 (0.0-0.8); Monocytes % (Auto) 7 % (0-12); Neutrophils # (Auto) 5.9 Thou/mm3 (1.8-7.7); Neutrophils % (Auto) 68 % (37-80); Nucleated Red Blood Cell % 0 /100 WBC (0); Platelet Count 239 Thou/mm3 (140-440); RDW Standard Deviation 38.6 fL (36.4-46.3); Red Blood Count 4.38 Miln/mm3 (4.00-5.20); White Blood Count 8.7 Thou/mm3 (3.6-11.0)
[2025-01-01 14:56] LABS: Alanine Aminotransferase 14 U/L (10-49); Albumin, Serum 3.9 gm/dL (3.4-4.8); Albumin/Globulin Ratio 1.7 (1.2-2.2); Alkaline Phosphatase 82 U/L (46-116); Anion Gap 7 (7-16); Aspartate Amino Transferase 18 U/L (0-34); BUN/Creatinine Ratio 20 Ratio (12-20); Bilirubin,Total 0.5 mg/dL (0.3-1.2); Blood Urea Nitrogen 14 mg/dL (9-23); Calcium 8.3 mg/dL (8.3-10.6); Calcium (Corrected) 8.4 mg/dL (8.5-10.1); Carbon Dioxide 29.8 mMol/L (20.0-31.0); Chloride 106 mMol/L (98-107); Creatinine (Component) 0.7 mg/dL (0.6-1.3); Globulin 2.3 gm/dL (2.3-3.5); Glucose 118 mg/dL (74-106); Osmolality,Calculated 286 (275-295); Potassium 3.7 mMol/L (3.4-5.1); Sodium 143 mMol/L (136-145); Total Protein 6.2 gm/dL (5.7-8.2); eGFR > 60 See Note
[2025-01-01 15:21] LABS: CA 15-3 9.4 U/mL (<32.4)
== END | disposition home or self-care (01) ==
PROVIDERS: PCP Internal Medicine; Referring Provider Internal Medicine Hematology & Oncology; Visit Provider Internal Medicine Hematology & Oncology
DX: C50.412 Malignant neoplasm of upper-outer quadrant of left female breast (principal)
CPT/HCPCS: 36415; 80053; 85025; 86300

== ENCOUNTER → 2025-01-09 | Outpatient (CLI) | payer OTHER, MEDICAID, SELFPAY ==
--- NOTE | 2025-01-09 13:45 | XR_ITS ---
Examination: Screening digital mammography, bilateral Computer aided detection 3-D breast Tomosynthesis, bilateral Date and time of exam: January 09, 2025 1418 hours Compared to mammograms dating to November 02, 2021 Indication: Screening Technique: Nonmagnified MLO, CC views of the breasts to been obtained, reconstructed from 3-D Tomosynthesis images. R2 computer aided detection program utilized for evaluation of suspicious masses and/or abnormal calcifications. 3-D Tomosynthesis images obtained. Findings: The breasts are heterogeneously dense, which may obscure small masses Architectural distortion retroareolar region left breast consistent with patient's history of treated left breast cancer Architectural distortion upper outer right breast anterior depth consistent with history of right breast cancer Benign calcifications. No definite interval suspicious masses Impression: BI-RADS category II: Benign Findings. Recommend 1 year follow-up mammogram. Given the patient's history, recommend bilateral breast sonography follow-up
== END | disposition home or self-care (01) ==
LOC: CDIM 14:02
PROVIDERS: PCP Internal Medicine; Referring Provider Internal Medicine Hematology & Oncology; Visit Provider Internal Medicine Hematology & Oncology
DX: Z12.31 Encounter for screening mammogram for malignant neoplasm of breast (principal); R92.323 Mammographic fibroglandular density, bilateral breasts; R92.1 Mammographic calcification found on diagnostic imaging of breast; C50.412 Malignant neoplasm of upper-outer quadrant of left female breast; D05.11 Intraductal carcinoma in situ of right breast
CPT/HCPCS: 77063; 77067

== ENCOUNTER → 2025-01-30 | Outpatient (CLI) | payer OTHER, MEDICAID, SELFPAY ==
[2025-01-30 09:41] LABS: Misc Send Out* See Sep Rpt
== END | disposition home or self-care (01) ==
LOC: COPL 09:12 → SCTO 09:23
PROVIDERS: PCP Internal Medicine Hematology & Oncology; Referring Provider Internal Medicine Hematology & Oncology; Visit Provider Internal Medicine Hematology & Oncology
DX: C50.412 Malignant neoplasm of upper-outer quadrant of left female breast (principal)
CPT/HCPCS: 80053; 85025; 86300

== ENCOUNTER 2025-03-05 08:10 | Day surgery (SDC) | payer OTHER, SELFPAY ==
--- NOTE | 2025-03-01 10:01 | ESHP_ITS ---
RE: KEYANNA WALTER : 1955 DATE OF ADMISSION: 03/05/2025 DATE OF SURGERY: 03/05/2025 HISTORY OF PRESENT ILLNESS: This is a 69-year-old 3, para 3 with postmenopausal bleeding and endometrial thickening, who presents for hysteroscopy and fractional dilatation and curettage and MyoSure removal of endometrial polyps. ALLERGIES: CODEINE. MEDICATIONS: 1. Loratadine 10 mg one p.o. daily. 2. Lovastatin 10 mg one p.o. daily. 3. Metoprolol 25 mg one p.o. daily. PAST MEDICAL HISTORY: Chronic hypertension, hyperlipidemia, seasonal allergies, bladder polyps. SOCIAL HISTORY: She denies any alcohol drug use or smoking. FAMILY HISTORY: Diabetes, hypertension, heart disease. OB HISTORY: Three previous full-term normal vaginal deliveries without complication. PAST SURGICAL HISTORY: 2023, cystoscopy and removal of bladder polyps. 2022, right breast benign. 2020, left finger. 2018, left breast benign. 2012, right shoulder and collarbone. 1995, left wrist cyst. PHYSICAL EXAMINATION: VITAL SIGNS: Blood pressure 111/59, heart rate 88, respirations 18, temperature 98.2, weight 139 pounds. HEENT: Oropharynx and sclerae are clear. LUNGS: Clear to auscultation bilaterally. HEART: Regular rate and rhythm. ABDOMEN: Nontender. EXTREMITIES: Nontender. SKIN: No gross rashes or lesions. NEUROLOGIC: No focal deficit. ASSESSMENT: Postmenopausal bleeding. PLAN: Hysteroscopy, fractional dilatation and curettage, and MyoSure removal of endometrial polyps. Informed consent was obtained. The patient made aware of the risks, complications, alternatives, and benefits of the proposed procedure and she agrees. She is aware of the risk of injury to bowel or bladder, adjacent organs, pulmonary embolism, deep vein thrombosis, pelvic infection, reoperation to repair injury to internal organs, anesthesia complications, the possibility that a laparotomy needs to be completed to stop bleeding or repair organs and the possibility of the procedure not able to be completed due to severe cervical stenosis or technical difficulties. The patient verbalized understanding and agrees to proceed with the procedure. DT: 09:13:58 TT: 09:59:00 Ref: [id number] - TID: [id number]
[2025-03-04 13:33] VITALS: BMI 25.6
--- NOTE | 2025-03-04 13:45 | EKG_ITS ---
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
[2025-03-04 14:38] LABS: Basophils # (Auto) 0.1 Thou/mm3 (0.0-0.2); Basophils % (Auto) 1 % (0-2.5); Eosinophils # (Auto) 0.1 Thou/mm3 (0.0-0.5); Eosinophils % (Auto) 2 % (0-10); Hematocrit 39.3 % (36.0-46.0); Hemoglobin 13.5 g/dL (12.0-16.0); Immature Granulocytes Auto 0.04 Thou/mm3 (0.00-0.00); Lymphocytes # (Auto) 1.8 Thou/mm3 (1.0-4.8); Lymphocytes % (Auto) 23 % (10-50); Mean Corpuscular HGB Conc 34.4 g/dl (31.0-37.0); Mean Corpuscular Hemoglobin 30.8 pg (25.0-35.0); Mean Corpuscular Volume 90 fL (80-100); Monocytes # (Auto) 0.7 Thou/mm3 (0.0-0.8); Monocytes % (Auto) 8 % (0-12); Neutrophils # (Auto) 5.2 Thou/mm3 (1.8-7.7); Neutrophils % (Auto) 66 % (37-80); Nucleated Red Blood Cell # 0.00 Thou/mm3 (0.00-0.00); Nucleated Red Blood Cell % 0 /100 WBC (0); Platelet Count 224 Thou/mm3 (140-440); RDW Standard Deviation 38.2 fL (36.4-46.3); Red Blood Count 4.39 Miln/mm3 (4.00-5.20); White Blood Count 7.9 Thou/mm3 (3.6-11.0)
[2025-03-04 14:50] LABS: INR 1.0 (0.9-1.3); Partial Thromboplastin Time 28.2 Seconds (22.0-36.0); Prothrombin Time 10.7 Seconds (9.0-12.2)
[2025-03-04 15:02] LABS: Alanine Aminotransferase 16 U/L (10-49); Albumin, Serum 3.8 gm/dL (3.4-4.8); Albumin/Globulin Ratio 1.7 (1.2-2.2); Alkaline Phosphatase 57 U/L (46-116); Anion Gap 7 (7-16); Aspartate Amino Transferase 21 U/L (0-34); BUN/Creatinine Ratio 15 Ratio (12-20); Bilirubin,Total 0.4 mg/dL (0.3-1.2); Blood Urea Nitrogen 12 mg/dL (9-23); Calcium 8.7 mg/dL (8.3-10.6); Calcium (Corrected) 8.9 mg/dL (8.5-10.1); Carbon Dioxide 29.6 mMol/L (20.0-31.0); Chloride 107 mMol/L (98-107); Creatinine (Component) 0.8 mg/dL (0.6-1.3); Estimated Creatinine Clearance 59.7 mL/min (>60); Globulin 2.2 gm/dL (2.3-3.5); Glucose 99 mg/dL (74-106); Osmolality,Calculated 286 (275-295); Potassium 3.8 mMol/L (3.4-5.1); Sodium 144 mMol/L (136-145); Total Protein 6.0 gm/dL (5.7-8.2); eGFR > 60 See Note
[2025-03-05] VITALS (7 sets, daily range): BP systolic 103–130; BP diastolic 53–70; PULSE 61–71; RESP 14–20; TEMP 36.2–36.5; O2SAT 95–100; BMI 26.8
--- NOTE | 2025-03-05 11:21 | SUR.PHASEI ---
1121 patient arrived to recovery resting comfortably in [facility], drowsy and able to arouse with verbal prompting, on oxygen 6L via oxy mask, breathing unlabored, vital signs stable, denies pain and nausea, report received from Osiel JAQUEZ and [facility]
--- NOTE | 2025-03-05 11:49 | PD.GYNPROC ---
Operative Note - CAREER SERVICES COORDINATOR Procedure Date of procedure: 03/05/25 Procedure Performed: Hysteroscopy, MyoSure removal of endometrial polyp, fractional dilatation curettage Indication: Postmenopausal bleeding Endometrial polyp Pre-Op diagnosis: Postmenopausal bleeding Endometrial polyp Post-Op diagnosis: Postmenopausal bleeding Endometrial polyp Anesthesia type: General Procedure description: After proper informed consent was obtained. The patient was made aware the risk complication alternative benefits of the proposed procedure. She was taken the operating room where she underwent induction of general anesthesia. She is placed in the dorsolithotomy position. She was prepped and draped in usual sterile fashion. A timeout was performed. A bivalve speculum was placed in the vagina. A single-tooth tenaculum was used to grasp the anterior lip of the cervix. The cervix was dilated to accommodate the 5.5 mm Omni hysteroscope. The hysteroscope was then utilized as normal saline was used as the distending media to visualize the uterine cavity. The broad-based polyp was seen on the anterior aspect of the mid uterus. Measuring approximately 3 x 1 cm. Using the MyoSure reach the polypectomy was performed. Using the Kevorkian curette the endocervix was curetted and specimen sent to pathology. Using the 5 mm curette the uterine cavity was curetted and specimen sent to pathology. All instruments removed from the vagina. There was no bleeding at the end of the procedure. Specimen: other (1 endometrial polyp. 2 endocervical curettings. 3 endometrial curettings.) Findings: Anteverted uterus Normal-appearing cervix Endometrial cavity contained an endometrial polyp 3 x 1 cm. Complications: none Surgical staff Operation Date: 03/05/25 10:00 <No data on this case meets the specified criteria> Osiel Woods CRNA Diagnosis Discharge Diagnosis (1) Postmenopausal bleeding: Status: Acute (2) Abnormal uterine bleeding due to endometrial polyp: Status: Acute Problem List Completed Was Problem List Reviewed/Reconciled?: Yes
--- NOTE | 2025-03-05 12:20 | SUR.PHASEII ---
1220 Patient meets discharge criteria from recovery, awake and alert, breathing unlabored, vital signs stable, denies pain, dressing intact; no bleeding noted, voided in the restroom prior to discharge, eating ice chips; tolerating well, denies nausea, able to dress herself into her clothing, discharge instructions given to patient and patients daughter, daughter signed discharge instructions. Patient given all her belongings prior to discharge, transported via wheelchair and left in a private vehicle.
== END 2025-03-05 12:20 | disposition home or self-care (01) ==
PROVIDERS: PCP Internal Medicine; Referring Provider Specialist; Visit Provider Specialist
PROC: 0U5B8ZZ Destruction of Endometrium, Via Natural or Artificial Opening Endoscopic (ICD-10-PCS; CPT 58563; principal; 2025-03-05 09:45)
DX: N84.0 Polyp of corpus uteri (principal); Z01.810 Encounter for preprocedural cardiovascular examination
CPT/HCPCS: 58558; 36415; 80053; 85025; 85610; 85730; 86850; 86900; 86901; 93005; A4217; A4649; J0131; J0690; J1885; J2250; J2405; J2704; J3490; J1596

== ENCOUNTER → 2025-04-02 | Outpatient (CLI) | payer OTHER, MEDICAID, SELFPAY ==
--- NOTE | 2025-04-02 14:00 | XR_ITS ---
Examination: Breast ultrasound complete, bilateral Date and time of exam: April 02, 2025 1554 hours INDICATIONS: Diagnosis malignant neoplasm upper outer quadrant left female breast Technique: Real-time grayscale ultrasonographic imaging bilateral breasts, including all 4 quadrants as well as nipple retroareolar and axillary regions. Findings: Sonographic images right breast No cystic or solid mass Sonographic images left breast 2:00 cyst, 4 x 3 mm, 3 x 4 mm No solid nodules IMPRESSION: BI-RADS Category 2: Benign findings
== END | disposition home or self-care (01) ==
PROVIDERS: PCP Internal Medicine; Referring Provider Internal Medicine; Visit Provider Internal Medicine
DX: R92.8 Other abnormal and inconclusive findings on diagnostic imaging of breast (principal)
CPT/HCPCS: 76641

== ENCOUNTER → 2025-05-24 | Outpatient (CLI) | payer OTHER, MEDICAID, SELFPAY ==
--- NOTE | 2025-05-24 | XR_ITS ---
EXAMINATION: Ankle, right 3 views. Technique: Ankle AP, oblique, lateral 3 views Date and time of exam: May 24, 2025, 1518 hours INDICATIONS: Injury to the ankle 5 days ago, ankle pain. FINDINGS: Significant osteopenia. No fracture or dislocation. Prominent osteopenia IMPRESSION: No fracture or dislocation
--- NOTE | 2025-05-24 | XR_ITS ---
Examination: Foot, right, 3 views Technique: AP, oblique, lateral views foot, 3 views Date and time of exam: May 24, 2025, 1514 hours INDICATIONS: Injury to the foot 5 days ago, foot pain FINDINGS: Prominent osteopenia Advanced osteoarthritis first metatarsophalangeal joint Prominent plantar posterior bony calcaneal spurs. No acute fracture IMPRESSION: No acute fracture
== END | disposition home or self-care (01) ==
LOC: CDIM 14:46
PROVIDERS: Referring Provider Internal Medicine; Visit Provider Internal Medicine
DX: S99.911A Unspecified injury of right ankle, initial encounter (principal); S99.921A Unspecified injury of right foot, initial encounter; X58.XXXA Exposure to other specified factors, initial encounter
CPT/HCPCS: 73610; 73630

== ENCOUNTER → 2025-06-04 | Outpatient (CLI) | payer OTHER, MEDICAID, SELFPAY ==
[2025-06-04 16:32] LABS: Basophils # (Auto) 0.1 Thou/mm3 (0.0-0.2); Basophils % (Auto) 1 % (0-2.5); Eosinophils # (Auto) 0.2 Thou/mm3 (0.0-0.5); Eosinophils % (Auto) 2 % (0-10); Hematocrit 42.8 % (36.0-46.0); Hemoglobin 14.5 g/dL (12.0-16.0); Immature Granulocytes Auto 0.03 Thou/mm3 (0.00-0.00); Lymphocytes # (Auto) 1.9 Thou/mm3 (1.0-4.8); Lymphocytes % (Auto) 23 % (10-50); Mean Corpuscular HGB Conc 33.9 g/dl (31.0-37.0); Mean Corpuscular Hemoglobin 31.5 pg (25.0-35.0); Mean Corpuscular Volume 93 fL (80-100); Monocytes # (Auto) 0.6 Thou/mm3 (0.0-0.8); Monocytes % (Auto) 8 % (0-12); Neutrophils # (Auto) 5.3 Thou/mm3 (1.8-7.7); Neutrophils % (Auto) 66 % (37-80); Nucleated Red Blood Cell # 0.00 Thou/mm3 (0.00-0.00); Nucleated Red Blood Cell % 0 /100 WBC (0); Platelet Count 235 Thou/mm3 (140-440); RDW Standard Deviation 40.7 fL (36.4-46.3); Red Blood Count 4.61 Miln/mm3 (4.00-5.20); White Blood Count 8.1 Thou/mm3 (3.6-11.0)
[2025-06-04 16:51] LABS: Alanine Aminotransferase 18 U/L (10-49); Albumin, Serum 4.3 gm/dL (3.4-4.8); Albumin/Globulin Ratio 2.5 (1.2-2.2); Alkaline Phosphatase 60 U/L (46-116); Anion Gap 9 (7-16); Aspartate Amino Transferase 24 U/L (0-34); BUN/Creatinine Ratio 15 Ratio (12-20); Bilirubin,Total 0.4 mg/dL (0.3-1.2); Blood Urea Nitrogen 9 mg/dL (9-23); Calcium 9.1 mg/dL (8.3-10.6); Calcium (Corrected) 9.1 mg/dL (8.5-10.1); Carbon Dioxide 30.2 mMol/L (20.0-31.0); Chloride 106 mMol/L (98-107); Creatinine (Component) 0.6 mg/dL (0.6-1.3); Globulin 1.7 gm/dL (2.3-3.5); Glucose 105 mg/dL (74-106); Osmolality,Calculated 287 (275-295); Potassium 3.9 mMol/L (3.4-5.1); Sodium 145 mMol/L (136-145); Total Protein 6.0 gm/dL (5.7-8.2); eGFR > 60 See Note
[2025-06-04 17:05] LABS: CA 15-3 12.8 U/mL (<32.4)
== END | disposition home or self-care (01) ==
LOC: COPL 14:02 → SCTO 14:03
PROVIDERS: PCP Internal Medicine; Referring Provider Internal Medicine Hematology & Oncology; Visit Provider Internal Medicine Hematology & Oncology
DX: C50.412 Malignant neoplasm of upper-outer quadrant of left female breast (principal)
CPT/HCPCS: 36415; 80053; 85025; 86300

== ENCOUNTER 2025-06-10 13:24 | Outpatient (RCR) | payer OTHER, MEDICAID, SELFPAY ==
--- NOTE | 2025-06-11 22:29 | CTCFLWUP_ITS ---
Patient: KEYANNA WALTER : 1955 Page 8 of 9 FOLLOW UP NOTE DATE OF SERVICE: 06/10/2025 NAME: KEYANNA WALTER ACCOUNT: [id number] : 1955 AGE: 70 INTERVAL HISTORY: Patient is complaining of urinary syptoms and back ache and requesting treatment for UTI . she have no family support. Also asking for muscle relaxants to help her pain. Paitent do not have money to take her supplement . 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 S/p right breast lumpectomy (02/18/2023) S/p adjuvant radiation therapy (05/18/2023 - 06/14/2023) 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 Status post partial mastectomy and sentinel lymph node biopsy (07/27/2019). Status post radiation therapy completed on 12/07/2019. Low Oncotype DX recurrence score (16) Was on letrozole (12/10/2019?02/18/2023), Prolia and Citracal. Ductal Carcinoma in situ of right breast s/p lumpectomy (02/18/2023) letrozole discontinued. Ms. Walter is started on tamoxifen. REASON FOR TODAY?S VISIT: This is office follow-up visit. Ms. Walter is here at [facility]. She is clinically doing well. Denies any new complaints. Denies any cough, chest pain, abdominal pain or leg cramps. Since last visit she had CT scan of the chest done without contrast which showed small multiple pulmonary nodules as documented below. Repeat CT scan is recommended to be done in 6 months. Ms. 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 Status post partial mastectomy and sentinel lymph node biopsy (07/27/2019). Status post radiation therapy completed on 12/07/2019. Low Oncotype DX recurrence score (16) Was on letrozole (12/10/2019?02/18/2023), Prolia and Citracal. Ductal Carcinoma in situ of right breast s/p lumpectomy (02/18/2023) letrozole discontinued. Ms. Walter is started on tamoxifen. 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 07/28/2018: Bilateral screening mammogram showed a suspicious focus of architectural distortion in the upper outer left breast at 1:30 position mid to anterior depth. 08/18/2018: Left breast diagnostic mammogram did not show any definite architectural distortion in the left breast. 04/27/2019: Left breast diagnostic mammogram showed architectural distortion at 1:30 position in the left breast mid to anterior depth. 06/07/2019: Stereotactic guided vacuum-assisted left breast biopsy with clip placement was performed. 07/27/2019: Patient had left breast partial mastectomy and sentinel lymph node biopsy. 09/21/2019: Oncotype DX 10/29/2019?12/07/2019: Patient received 5600 cGy radiation therapy to the left breast. 12/10/2019: Patient is started on Femara and Citracal 01/03/2020: DEXA scan? 03/06/2020: Patient received first dose of Prolia 60 mg subcu. 10/20/2020: Patient had bilateral screening mammogram which showed BI-RADS Category 2: Benign findings. 10/02/2020: AST 26, ALT 34. 01/28/2021: AST 30, ALT 52. 04/01/2021 AST 53, ALT 81 09/08/2021: AST 53, ALT 73. 11/02/2021: AST 65, ALT 85. 12/02/2022: Right breast diagnostic mammogram? 01/11/2023: tereotactic core biopsy of right breast calcifications? 02/18/2023: 03/24/2023: CT-guided biopsy of the left carotid triangle lymph node? 04/07/2023: Letrozole discontinued. Patient is started on tamoxifen 20 mg p.o. Daily. 05/18/2023 - 06/14/2023: Ms. Walter received adjuvant radiation therapy to the right breast. 09/16/2023: Left breast ultrasound? 03/01/2024: CT scan of the chest without IV contrast OTHER MEDICAL HISTORY/CONDITIONS: FAMILY HISTORY: SOCIAL HISTORY: [employer] HISTORY: MEDICATIONS: 1. Aspirin Child - 81 mg Daily 2. Navjot-600 With Vitamin D - 600 mg Daily 3. cetirizine - 10 mg Capsule Daily 4. Cipro - 500 mg 1 tab 1 tab twice daily 5. Claritin - 10 mg Daily 6. cyclobenzaprine - 5 mg 1 tab Daily 7. lovastatin - 40 mg 1 tab Daily 8. magnesium - 200 mg 1 tab Daily 9. metoprolol succinate - 25 mg 1 tab Daily 10. Multivitamin 50 Plus - 1 tab Daily 11. tamoxifen - 20 mg 1 tab Daily 12. TylenoL - 500 mg 1 tab As needed Medications Last Reconciled by Merlene Ruiz MA on 06/10/2025 ALLERGIES: codeine sulfate; Iodine and Iodide Containing Products; IV CONTRAST REVIEW OF SYSTEMS: A complete 14-point review of systems was performed and is negative except as noted in interval history. PHYSICAL EXAMINATION: VITAL SIGNS: Temperature?98.9, B/P?107/69, Oxygen?Saturation?97% Weight?133?lbs PAIN: 8 - Very severe pain ECOG Performance Status: 0 - Asymptomatic and fully active GENERAL APPEARANCE: Appears well, in no apparent distress, appropriately interactive. HEENT: Normocephalic, no temporal wasting, normal conjunctiva, no scleral icterus, normal hearing, lips without lesions, neck normal range of motion. CARDIOVASCULAR: Not assessed. PULMONARY: Normal respiratory effort, no respiratory distress or use of accessory muscles, speaking in full sentences, no tachypnea. EXTREMITIES: No pedal edema or cyanosis. SKIN: Normal skin appearance. NEUROLOGIC: Alert and oriented x4. PSHYCHIATRIC: Appropriate affect, mood normal, behavior normal, intact thought and speech. LABORATORY DATA: I have personally reviewed and interpreted each of the patient?s relevant lab tests, abnormal findings are below: Date 03/04/25 06/04/25 ??WHITE?BLOOD?COUNT?(Thou/mm3) 7.9 8.1 ??RED?BLOOD?COUNT?(Miln/mm3) 4.39 4.61 ??HEMOGLOBIN?(gm/dl) 13.5 14.5 ??HEMATOCRIT?(%) 39.3 42.8 ??PLATELET?COUNT?(Thou/mm3) 224 235 ??NEUTROPHILS?%,?AUTO?(%) 66 66 ??LYMPH?%,?AUTO?(%) 23 23 ??NEUTROPHILS,?AUTO?(Thou/mm3) 5.2 5.3 ??GLUCOSE,RANDOM?(mg/dL) 99 105 ??BLOOD?UREA?NITROGEN?(mg/dL) 12 9 ??CREATININE?(mg/dL) 0.80 0.60 ??SODIUM?(mmol/L) 144 145 ??POTASSIUM?(mmol/L) 3.8 3.9 ??CHLORIDE?(mmol/L) 107 106 ??CrCl?(CandG)?(ml/min) 68.41 89.96 ??AST/SGOT?(Unit/L) 21 24 ??ALT/SGPT?(Unit/L) 16 18 ??ALKALINE?PHOSPHATASE?(Unit/L) 57 60 ??BILIRUBIN,?TOTAL?(mg/dL) 0.4 0.4 ??PROTEIN?TOTAL?(gm/dl) 6.0 6.0 ??ALBUMIN,?SERUM?(gm/dl) 3.8 4.3 ??GLOBULIN?(gm/dl) 2.2?L 1.7?L ??ALBUMIN/GLOBULIN?RATIO 1.7 2.5?H ??CALCIUM,?SERUM?(mg/dL) 8.7 9.1 ??CALCIUM?SERUM?(CORRECTED)?(mg/dL) 8.9 9.1 ASSESSMENT/PLAN: 1. 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 Low Oncotype DX score of 16Recently identified multiple small pulmonary nodules as documented above. Ms. Walter denies any cough, chest pain, shortness of breath. Denies any fevers or night sweats. S/p radiation therapy to the right breast completed on 06/14/2023. Currently she is on tamoxifen and tolerating it very well. Tamoxifen was started on 04/07/2023. Patient developed ductal carcinoma in situ ER positive, OK positive of the right breast while on letrozole. Letrozole discontinued. S/p right breasT lumpectomy. She is also on Prolia and Citracal for osteopenia Status post partial mastectomy and sentinel lymph node biopsy (07/27/2019). Status post radiation therapy completed on 12/07/2019. I requested a repeat CT scan of the chest without contrast to be done on September 05, 2024. Continue tamoxifen 20 mg p.o. daily. Continue Prolia 60 mg subcu every 6 months. Continue calcium/vitamin D tablets. Will see her back in clinic in last week of August 2024 for follow-up. Ordered Cipro for her Urine infection and gave cycleobenzaprine for pain. Ordered MVT to cont ORDERS: Order # Description [id number] Basic Metabolic Panel [id number] Basic Metabolic Panel RETURN TO CLINIC: I reviewed the diagnosis, prognosis, and recommended treatment/procedure options with the patient (and/or their legal primary care sales representative), including the potential benefits, risks, side effects and alternative therapies. We also discussed the option of no treatment and the possibility of clinical trial participation, if applicable. All questions were addressed, and they demonstrated understanding. They provided informed consent to proceed with the proposed plan of care. BILLING AND COMPLIANCE: I reviewed external records from providers outside my specialty as summarized above. I spent a total of 50 minutes on this patient?s care on the day of their visit excluding time spent related to any billed procedures. This time includes time spent with the patient as well as time spent documenting in the medical record, reviewing patients records and tests, obtaining history, placing orders, communicating with other healthcare professionals, counseling the patient, family or caregiver, and/or care coordination for the diagnoses above. Electronically Signed by: {Object.Sanct_ID*PnP.NameFL@M}, {Object.Sanct_ID*PnP.Suffix@U} D: {Object.Sanct_Date} T: {Object.Sanct_Time} CC: Stew?Princess,? PCP: Jose Mccoy Referring: Jose Duong This document was completed utilizing speech recognition software. Grammatical errors, random word insertions, pronoun errors, and incomplete sentences are an occasional consequence of this system due to software limitations, ambient noise, and hardware issues. Any formal questions or concerns about the content, text or information contained within the body of this dictation should be directly addressed to the provider for clarification.
== END 2025-06-14 23:59 | disposition home or self-care (01) ==
LOC: SCTC 13:24
PROVIDERS: PCP Internal Medicine; Referring Provider Internal Medicine; Visit Provider Internal Medicine Hematology & Oncology
DX: C50.412 Malignant neoplasm of upper-outer quadrant of left female breast (principal); Z17.0 Estrogen receptor positive status [ER+]; Z17.21 Progesterone receptor positive status; Z17.32 Human epidermal growth factor receptor 2 negative status; Z79.810 Long term (current) use of selective estrogen receptor modulators (SERMs); Z90.12 Acquired absence of left breast and nipple; Z92.3 Personal history of irradiation; M85.88 Other specified disorders of bone density and structure, other site; R91.8 Other nonspecific abnormal finding of lung field
CPT/HCPCS: 99212; G0463